=== PATIENT | female | born 1980 | race Caucasian/White ===

== ENCOUNTER 2017-03-13 17:07 | Emergency (ER) | payer MEDICAID ==
[~2017-03-13] VITALS: Ht 157.5 cm; Wt 67.1 kg
[2017-03-13] MEDS ORDERED: CLONIDINE HCL0.1 M1 PO (17:16)
--- NOTE | 2017-03-13 17:32 | Emergency Room Report ---
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 N Clinical Suspician of Infection? N Mental Status: 1 - Regular (Normal Baseline) Sepsis Risk:Low Sepsis Risk Have you (or family members/close friends) recently traveled outside the [place]? N If Yes, where/when: Have you had exposure to infectious disease within the past month? TB? Other? Specify: Comment The patient has a 5 day history of an infected area on her RIGHT medial thigh. No prior history of abscesses, skin infections, or MRSA. She squeezed it last night and got a small amount of purulent drainage with blood. ALLERGIES Uncoded Allergies: PCN (03/13/17) Home Medications Reported Medications CLONIDINE HCL (Clonidine 0.1MG) 0.1 MG PO ONCE #90 History Medical History General Angina: No [place]: No Hypertension? No Hyperlipidemia? No CHF? No COPD? No Asthma? No CVA? No Seizures? No Diabetes? No GB Disease: No MRSA? No TB? No Anxiety? Yes Depression? Yes Cancer? No More? 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 Cardiovascular regular rate/rhythm, normal peripheral pulses Neurologic alert, no motor/sensory deficits Skin cutaneous abscess RIGHT medial proximal thigh. Small pinhole sized draining sinus present, tiny amount of periodic drainage. Approximately 5 cm diameter area of induration palpable. No fluctuance. Surrounding erythema consistent with cellulitis, 10 cm diameter. Medical Decision Making LABS/Meds/Orders Pt receiving controlled substance in ED? No Results/Orders Current Medication Orders Sig/Michelle Start time Last Medication Dose Route Stop Time Status Admin Trimethoprim/ 0 .STK-MED ONE 03/13 1818 DC Sulfamethoxazole PO Trimethoprim/ 0 .STK-MED ONE 03/13 1817 DC Sulfamethoxazole PO Trimethoprim/ 1 TABLET ONCE ONE 03/13 1800 DCr 03/13 Sulfamethoxazole PO 03/13 1801 1819 Lidocaine/Epinephrine 0 .STK-MED ONE 03/13 1726 DC .ROUTE Orders Procedure Date/time Status GEN NSG/PT REQ (NOT FOR MEDS!) 03/13 175 Active CULTURE, WOUND 03/13 1753 Active Procedures Incision and Drainage Progress Incision/Drainage Performed by: JACE BRAGG Consent: Verbal consent obtained. Risks and benefits: risks, benefits and alternatives were discussed Consent given by: patient Patient identity confirmed: verbally with patient Type: abscess Location: RIGHT thigh Anesthesia: local infiltration Local anesthetic: lidocaine 1% with epinephrine Patient sedated: no Scalpel size: 11 Incision type: single straight Complexity: simple Drainage: purulent, bloody Drainage amount: Scant Wound treatment: probed for loculationsl. wound left open Packin/4 inch Culture: Yes Patient tolerance: Patient tolerated the procedure well with no immediate complications Departure Departure Disposition DC Home or Self Care(routine) Clinical Impression Primary Impression: Cutaneous abscess Qualifiers: Site of cutaneous abscess: extremity Site of cutaneous abscess of extremity: lower extremity Laterality: right Qualified Code: L02.415 - Cutaneous abscess of right lower limb Condition STABLE Patient Instructions DI for Incision and Drainage of a Skin Abscess Additional Instructions Additional instructions for ABSCESS: Day one and two: Remove the bandage and shower the area, leaving the packing in place. Gently blot dry. Apply a bandage. Day three: Follow-up with primary care physician, clinic, or Urgent Treatment Center for packing removal and culture results. Return to the emergency department if increasing pain, swelling, redness, redstreaks or fever greater than 101 degrees. Prescriptions Current Visit Scripts SULFAMETHOXAZOLE W/TRIMETHOPRI (Bactrim Ds Tab) 1 TAB PO BID #20 TAB ED Critical Care Critical Care No at 1915
--- NOTE | 2017-03-13 17:32 | Emergency Room Report ---
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 N Clinical Suspician of Infection? N Mental Status: 1 - Regular (Normal Baseline) Sepsis Risk:Low Sepsis Risk Have you (or family members/close friends) recently traveled outside the [place]? N If Yes, where/when: Have you had exposure to infectious disease within the past month? TB? Other? Specify: Comment The patient has a 5 day history of an infected area on her RIGHT medial thigh. No prior history of abscesses, skin infections, or MRSA. She squeezed it last night and got a small amount of purulent drainage with blood. ALLERGIES Uncoded Allergies: PCN (03/13/17) Home Medications Reported Medications CLONIDINE HCL (Clonidine 0.1MG) 0.1 MG PO ONCE #90 History Medical History General Angina: No [place]: No Hypertension? No Hyperlipidemia? No CHF? No COPD? No Asthma? No CVA? No Seizures? No Diabetes? No GB Disease: No MRSA? No TB? No Anxiety? Yes Depression? Yes Cancer? No More? 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 Cardiovascular regular rate/rhythm, normal peripheral pulses Neurologic alert, no motor/sensory deficits Skin cutaneous abscess RIGHT medial proximal thigh. Small pinhole sized draining sinus present, tiny amount of periodic drainage. Approximately 5 cm diameter area of induration palpable. No fluctuance. Surrounding erythema consistent with cellulitis, 10 cm diameter. Medical Decision Making LABS/Meds/Orders Pt receiving controlled substance in ED? No Results/Orders Current Medication Orders Sig/Michelle Start time Last Medication Dose Route Stop Time Status Admin Trimethoprim/ 0 .STK-MED ONE 03/13 1818 DC Sulfamethoxazole PO Trimethoprim/ 0 .STK-MED ONE 03/13 1817 DC Sulfamethoxazole PO Trimethoprim/ 1 TABLET ONCE ONE 03/13 1800 DCr 03/13 Sulfamethoxazole PO 03/13 1801 1819 Lidocaine/Epinephrine 0 .STK-MED ONE 03/13 1726 DC .ROUTE Orders Procedure Date/time Status GEN NSG/PT REQ (NOT FOR MEDS!) 03/13 175 Active CULTURE, WOUND 03/13 1753 Active Procedures Incision and Drainage Progress Incision/Drainage Performed by: JACE BRAGG Consent: Verbal consent obtained. Risks and benefits: risks, benefits and alternatives were discussed Consent given by: patient Patient identity confirmed: verbally with patient Type: abscess Location: RIGHT thigh Anesthesia: local infiltration Local anesthetic: lidocaine 1% with epinephrine Patient sedated: no Scalpel size: 11 Incision type: single straight Complexity: simple Drainage: purulent, bloody Drainage amount: Scant Wound treatment: probed for loculationsl. wound left open Packin/4 inch Culture: Yes Patient tolerance: Patient tolerated the procedure well with no immediate complications Departure Departure Disposition DC Home or Self Care(routine) Clinical Impression Primary Impression: Cutaneous abscess Qualifiers: Site of cutaneous abscess: extremity Site of cutaneous abscess of extremity: lower extremity Laterality: right Qualified Code: L02.415 - Cutaneous abscess of right lower limb Condition STABLE Patient Instructions DI for Incision and Drainage of a Skin Abscess Additional Instructions Additional instructions for ABSCESS: Day one and two: Remove the bandage and shower the area, leaving the packing in place. Gently blot dry. Apply a bandage. Day three: Follow-up with primary care physician, clinic, or Urgent Treatment Center for packing removal and culture results. Return to the emergency department if increasing pain, swelling, redness, redstreaks or fever greater than 101 degrees. Prescriptions Current Visit Scripts SULFAMETHOXAZOLE W/TRIMETHOPRI (Bactrim Ds Tab) 1 TAB PO BID #20 TAB ED Critical Care Critical Care No at 1915
[2017-03-13] MEDS ORDERED: BACTRIM DS 8001 TA1 PO (17:55)
[2017-03-13 18:26] VITALS: BP 131/91
== END 2017-03-13 18:27 | disposition home or self-care (01) ==
LOC: ER 17:07
PROC: 0H9HXZZ Drainage of Right Upper Leg Skin, External Approach (ICD-10-PCS; principal; 2017-03-13)
DX: L02.415 Cutaneous abscess of right lower limb (principal)

== ENCOUNTER 2017-04-12 19:27 | Emergency (ER) | payer MEDICAID ==
[~2017-04-12] VITALS: Ht 157.5 cm; Wt 67.1 kg
[~2017-04-12 19:27] MED LIST: BACTRIM DS 8001 TA1 PO; CLONIDINE HCL0.1 M1 PO
[2017-04-12 19:58] LABS: HEMOGLOBIN 13.3 g/dL (12.2-16.2)
[2017-04-12 19:59] LABS: LYMPH % 30.1 % (10-50.0)
[2017-04-12 20:03] LABS: URINE BILIRUBIN - DIPSTICK NEGATIVE (NEG); URINE BLOOD TRACE-INTACT (NEG)
--- NOTE | 2017-04-12 20:09 | Emergency Room Report ---
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 N Clinical Suspician of Infection? N Mental Status: 1 - Regular (Normal Baseline) Sepsis Risk:Low Sepsis Risk Have you (or family members/close friends) recently traveled outside the [place]? N If Yes, where/when: Have you had exposure to infectious disease within the past month? N TB? Other? Specify: Source patient, RN notes reviewed, family, old records Exam Limitations no limitations Comment 2 day hx of lt abd pain /flank with nausea but no fever or rash and no diarrhea Cardiac Chest Pain Chest pain indicative of cardiac No Timing/Duration this evening Severity moderate ALLERGIES Coded Allergies: Penicillins (03/15/17) latex (04/12/17) Home Medications Active Scripts SULFAMETHOXAZOLE W/TRIMETHOPRI (Bactrim Ds Tab) 1 TAB PO BID #20 TAB Prov: 03/13/17 Reported Medications CLONIDINE HCL (Clonidine 0.1MG) 0.1 MG PO ONCE #90 History Medical History General CAD? No Angina: No [place]: No Hypertension? No Hyperlipidemia? No CHF? No DVT? No PE? No COPD? No Asthma? No Anemia? No GERD? No Gastric ulcers? No GI Bleed? No Hernia? No Thyroid Problems? No Hypothyroidism? No CVA? No Seizures? No Diabetes? No Renal Insuffiency? No End Stage Renal Disease? No UTI? No Stones? No BPH? No GB Disease: No Nephritic Syndrome? No Asplenia? No Hepatitis? No Sickle Cell Disease? No Arthritis? No Migraines? No Cataracts? No Glaucoma? No MRSA? No HIV? No TB? No Anxiety? Yes Depression? Yes Cancer? No More? 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 Respiratory denies cough, denies shortness of breath, denies wheezing Cardiovascular denies chest pain, denies palpitations, denies syncope Gastrointestinal see HPI, abdominal pain, denies diarrhea, nausea, denies vomiting Genitourinary denies: abnormal vaginal bleeding, dysuria, frequency, hesitancy, hematuria. Musculoskeletal denies joint pain Skin denies rash Psychiatric/Neurological denies headache, denies seizure Physical Exam Vital Signs Vital Signs Date Time Temp Pulse Resp B/P Pulse O2 O2 Flow FiO2 Ox Delivery Rate 04/12 2007 98.8 108 16 133/90 99 04/12 1931 98.7 108 20 138/92 100 - WBC >12,000 or <4,000 or 10% bands? 2 or more SIRS Criteria Met? B/P:133/90 MAP:107 Creatinine >2.0? UA output<0.5ml/kg/hr for 2 hrs? Platelet count >100,000? Lactate >2.0mmol/1? INR >1.2 or PTT > than 60 sec? Evidence of Organ Dysfunction? Provider documented clinical suspician of infection? N Sepsis Criteria Count: 2 Sepsis Risk: Possible Sepsis Risk General Appearance no apparent distress Eye Exam - bilateral eye PERRL, bilateral eye EOMI Ear, Nose, Throat normal ENT inspection Neck supple Respiratory Status No: respiratory distress. Lung Sounds bilateral: lungs clear. 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 No Results/Orders Laboratory Tests 04/12/171950: Urine Color YELLOW, Urine Appearance SL CLOUDY, Urine pH 7.0, Ur Specific [place] 1.015, Urine Protein NEGATIVE, Urine Ketones NEGATIVE, Urine Blood TRACE -INTACT, Urine Nitrate NEGATIVE, Urine Bilirubin NEGATIVE, Urine Urobilinogen 0.2, Ur Leukocyte Esterase NEGATIVE, Urine RBC 3-5, Urine WBC OCC, Ur Squamous Epith Cells 10-20, Urine Bacteria 2+, Urine Glucose NEGATIVE 04/12/171944: Amylase 66, Lipase 188 04/12/171944: Sodium 138, Potassium 4.4, Chloride 101, Carbon Dioxide 28, BUN 9, Creatinine 1.0, Estimated Creat Clear 120, Estimated GFR (MDRD) 63, Glucose 73 L, Calcium 9.2, Total Bilirubin 0.2, AST 117 H, ALT 288 H, Alkaline Phosphatase 122 H, Total Protein 8.9 H, Albumin 4.2, Globulin 4.7 H, Albumin/Globulin Ratio 0.9 L, WBC 9.9, RBC 4.17 L, Hgb 13.3, Hct 39.8, MCV 95.4, RDW 13.8, Plt Count 353, Gran % 65.5, Gran # 6.5, Lymphocytes % 30.1, Monocytes % 4.4, Lymphocytes # 3.0, Monocytes # 0.4, PUBS MCHC 33.4, MCH 31.9 H Current Medication Orders Sig/Michelle Start time Last Medication Dose Route Stop Time Status Admin Sodium Chloride 10 ML PRN PRN 04/12 1945 AC IV 04/13 1935 Orders Procedure Date/time Status DIET-NOTHING BY MOUTH 04/13 B Active LIPASE 04/12 2009 Complete AMYLASE 04/[address] ABD & PELVIS W/O CONTRAST 04/12 2007 Active CULTURE, URINE 04/[address] ABD/PELVIS REQ 04/12 1935 Complete IV SALINE LOCK 04/12 1935 Active URINALYSIS/COMPLETE 04/12 1935 Complete URINE 04/12 1935 Complete CBC WITH AUTO DIFF 04/12 1935 Complete CHEM 12 PROFILE 04/12 1935 Complete XRAY/CT/US XRAY/CT/US CT abdomen, pelvis CT interpretation by discussed w/radiologist Time results known: 2043 CT Results normal/NAD Departure Departure Time of Disposition 2039 Disposition DC Home or Self Care(routine) Clinical Impression Primary Impression: Abdominal pain Qualifiers: Abdominal location: left upper quadrant Qualified Code: R10.12 - Left upper quadrant pain Secondary Impressions: Elevated LFTs Condition STABLE Referrals Jairo ADAMS,[place] Best (Family) Patient Instructions DI for Abdominal Pain-Adult Additional Instructions will follow as op and have pt call office for results Discharge Counseling Counseled pt/family regarding diagnosis, test results, follow up needs ED Critical Care Critical Care No at [id number]
[2017-04-12 21:02] VITALS: BP 138/99
--- NOTE | 2017-04-13 06:10 | RADIOLOGY REPORT PS360 ---
CT ABD PELVIS W/O CONTRAST CLINICAL INDICATION: Left-sided abdominal pain, left flank pain LEFT ABD PAIN ORDERING PHYSICIAN: Josh Gill MD PATIENT AGE: 36 years COMPARISON: None TECHNIQUE: Axial images obtained with sagittal and coronal reformats. PROCEDURE: Oral Contrast: None IV Contrast: None . FINDINGS: Lower thorax: No acute finding ABDOMEN: Liver: No masses or biliary dilatation. Gallbladder: Nondistended. No radio opaque stones. Pancreas: No masses or peripancreatic fluid collections. Spleen: Unremarkable. Adrenals: Unremarkable Kidneys/ureters: No masses. No renal calculi. No hydronephrosis. No perinephric fluid collections. No ureteral dilatation or obvious ureteral calculi. Stomach bowel: Constipation. Nonspecific nonobstructive bowel gas pattern Appendix: No evidence of appendicitis. PELVIS: Reproductive: Unremarkable Bladder: Nondistended. No obvious stones or masses. ABDOMEN & PELVIS: Peritoneum: No abnormal fluid collections. No obvious inflammatory changes. No free air. Lymph nodes: No enlarged lymph nodes apparent. Vasculature: No evidence of abdominal aortic aneurysm. No retroperitoneal hemorrhage evident. Bones: No acute fracture IMPRESSION: No acute intra-abdominal or pelvic findings Constipation.
== END 2017-04-12 21:03 | disposition home or self-care (01) ==
LOC: ER 19:27
PROVIDERS: Emergency Medicine
DX: R10.12 Left upper quadrant pain (principal); R94.5 Abnormal results of liver function studies; F17.210 Nicotine dependence, cigarettes, uncomplicated; Z88.0 Allergy status to penicillin; Z91.040 Latex allergy status

== ENCOUNTER → 2017-06-03 | Outpatient (CLI) | payer OTHER ==
[~2017-06-03] MED LIST changes: +PHENTERMINE H37.5 M1 PO
--- NOTE | 2017-06-07 11:02 | RADIOLOGY REPORT PS360 ---
MRI-L-SPINE W/O, MRI-3D RENDERING/MYELOGRAM HISTORY: BACK PAIN low back pain 6 months. Patient Age: 36 years: Female Ordering Physician: London Gill MD TECHNIQUE: Sagittal STIR, T1, T2, axial T1 and T2. On 1.5T Siemens wide bore MRI. 3-D MR myelogram image set obtained & performed on MRI workstation. Additional sagittal thin section T2 weighted dataset obtained from this latter acquisition as well (---76 CPT) COMPARISON :Previous CT abdomen and pelvis reconstructions of spine March 2017 FINDINGS Vertebral bodies appear intact and disc spaces remain well hydrated well-maintained. No disc herniation. L5/S1.. Disc intact with only slight Generous posterior disc contour... Question perhaps minor facet prominent/hypertrophy. These features yield only minor narrowing entry of left foramen more than right. L4/5. Disc intact. Unremarkable. Minor facet prominence. Neural foramen widely patent. L3/4 disc intact. Unremarkable. More generous spinal canal at this level. L2/3, L1/2, T12/L1, T11/12 disc intact. The paraspinal muscles appear satisfactory well-maintained and developed. Uppermost sacrum S1-S2 unremarkable 3-D MR myelogram image set appears normal. No remarkable epidural indentation. Normal gradual tapering of thecal sac inferiorly towards S1 level. IMPRESSION: No significant findings. No disc herniation. No spinal stenosis. No significant foraminal encroachment. . There may be some minor facet prominence and very early facet hypertrophy at L5/S1 L4/5 but unimpressive. Only question some minor narrowing at the entry left L5/S1 foramen.
== END ==
LOC: RAD 12:49
DX: M54.5 Low back pain (principal)

== ENCOUNTER 2017-06-16 23:10 | Emergency (ER) | payer MEDICAID ==
[~2017-06-16] VITALS: Ht 157.5 cm; Wt 68.0 kg
[~2017-06-16 23:10] MED LIST changes: -PHENTERMINE H37.5 M1 PO
[2017-06-16] MEDS ORDERED: PHENTERMINE H37.5 M1 PO (23:21)
--- OUTSIDE RECORDS SUMMARY | 2017-06-16 23:27 | External Medical Summary Rpt | CCD ---
Author Author , NIXON ALICEA Address Unknown Phone [email or web address] Care Team Providers Care Sap Bw Architect Name Role Phone [facility] Unavailable Unavailable MEDICAL GROUP, [facility] Unavailable Unavailable CENTER, [facility] Unavailable Unavailable [facility], Unavailable Unavailable [facility] Un[facility] Un[facility], [facility] Unavailable Unavailable INC, [facility] Unavailable Unavailable HOSPITAL, [facility], Unavailable Unavailable [facility] Unavailable Unavailable [facility], [facility] Unavailable Unavailable HOLDINGS, [facility] Unavailable Unavailable HUNG JEFF MD Unavailable Unavailable CONSULTING SRV, HUNG JEFF MD CONSULTING SRV [facility], Unavailable Unavailable PLLC, [facility], [facility] Unavailable Unavailable [place], [facility] Unavailable Unavailable PHYSICIAN SERVI, [facility] Purpose Continuity of Care Document - 05-14-2014 through 2016 Problems Code Diagnosis DOS Provider Status B19.10 UNSPECIFIED 05-03-2017 VIRAL HEPATITIS B WITHOUT HEPATIC COMA B1910 UNS VIRAL 05-02-2017 [facility] HEPATITIS B COMMUNTIY WITHOUT HOSPITA HEPATIC COMA Z11.4 ENCOUNTER 04-21-2017 FOR SCREENING FOR HUMAN IMMUNODEFIC IENCY VIRUS [HIV] K5900 CONSTIPATIO 04-12-2017 [facility] R1012 LEFT UPPER 04-12-2017 [facility] R1032 LEFT LOWER 04-12-2017 [facility] E663 OVERWEIGHT 03-28-2017 [facility] M549 DORSALGIA 03-28-2017 [facility] UNSPECIFIED PHYSICIANS GROUP R531 WEAKNESS 03-28-2017 [facility] GROUP R768 OTH SPEC 03-28-2017 [facility] IMMUNOLOGIC INC AL FIND IN SERUM X49574 OTHER LONG 03-14-[address] [facility] [address] CURRENT C[facility] DRUG THERAPY R05056 CUTANEOUS 03-13-2017 [facility] ABSCESS OF PHYSICIANS, RIGHT LOWER PLLC LIMB K57253 CUSTODIAL 02-15-2017 [facility]ICIANS CURRENT USE MEDICAL OF OPIATE CENTER ANALGESIC H5201 HYPERMETROP 12-02-2016 [facility] IA RIGHT EYE 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 R51433 UNSPECIFIED 12-02-2016 [facility] ASTIGMATISM BILATERAL J029 ACUTE 11-05-2016 [facility] PHARYNGITIS [facility] UNSPECIFIED R05 COUGH 07-12-2016 [facility] R6889 OTHER 07-12-2016 [facility] SYMPTOMS MEDICAL AND SIGNS GROUP J020 STREPTOCOCC 04-28-2016 [facility] PHARYNGITIS MEDICAL GROUP J0141 ACUTE 03-19-2016 [facility] HEALTH PANSINUSITI MEDICAL S GROUP J0190 ACUTE 12-20-2015 [facility] SINUSITIS [facility] UNSPECIFIED CENTER J069 ACUTE UPPER 12-20-2015 [facility] RESPIRATORY CENTER INFECTION UNSPECIFIED E876 HYPOKALEMIA 08-10-2015 [facility] R000 TACHYCARDIA 08-10-2015 [facility] J00 ACUTE 08-02-2015 [facility] NASOPHARYNG HEALTH ITIS COMMON MEDICAL COLD GROUP J0140 ACUTE 08-02-2015 [facility] PANSINUSITI HEALTH S MEDICAL UNSPECIFIED GROUP 5990 URINARY 04-14-2015 [facility] HOSPITAL SITE NOT SPECIFIED 51405 UNS ADVRS 12-13-2014 [facility]UN[facility] JEFF EFF UNS RX MD MEDICINAL&B CONSULTING [facility]OLOGICAL [facility] 4871 INFLUENZA 08-02-2014 [facility] WITH OTHER HEALTH RESPIRATORY MEDICAL GROUP MANIFESTATI ONS 2724 OTHER AND 07-13-2014 [facility] UNSPECIFIED HYPERLIPIDE NATHAN V700 ROUTINE 05-14-2014 [facility] [email or web address] FACL L02.91 CUTANEOUS ABSCESS, UNSPECIFIED R10.9 UNSPECIFIED ABDOMINAL PAIN R79.89 OTHER SPECIFIED ABNORMAL FINDINGS OF BLOOD CHEMISTRY Medications Na ND Rx Da Fi Fi Am Da Di Ph RX Ph St me C No te ll ll ou ys ag ar # ys at rm s nt no ma ic us Or Da si cy ia de te s n re d PO 62 10 11 10 30 00 ME Ac LY 17 -1 -1 20 00 DI ti ET 50 9- 7- .0 06 CI ve HY 44 20 20 00 74 NE LE 21 17 [address] OP GL YC PH OL AR MA 33 CY 50 PO WD CL 00 09 10 21 7 00 ME Ac IN 59 -0 -0 .0 00 DI ti DA 12 5- 6- 00 06 CI ve MY 93 20 20 74 NE CI 20 17 [address] HC OP L 30 PH 0 AR MG MA CY CA PS UL E IB 55 09 10 12 3 00 ME Ac UP 11 -0 -0 .0 00 DI ti RO 10 5- 6- 00 06 CI ve FE 68 20 20 74 NE N 30 17 17 [address] 0 OP MG PH TA AR BL MA ET CY WALDRON 53 08 09 20 10 00 ME Ac LF 74 -2 -2 .0 00 DI ti AM 60 8- 9- 00 06 CI ve ET 27 20 20 74 NE HO 20 17 17 [address] ZO OP LE -T PH MP AR MA DS CY TA BL ET HY 00 08 09 [address] 18 -2 -2 .0 00 DI ti OX 50 9- 9- 00 06 CI ve YZ 61 20 20 74 NE IN 50 17 [address] PA OP M 50 PH AR MG MA CY CA P [place] 60 08 09 30 30 00 ME Ac RT 50 -2 -2 .0 00 DI ti AZ 50 5- 2- 00 06 CI ve AP 24 20 20 74 NE IN 70 17 [address] 15 OP MG PH AR TA MA BL CY ET MO 33 08 09 30 30 00 ME Ac NT 34 -2 -2 .0 00 DI ti EL 20 5- 2- 00 06 CI ve UK 10 20 20 74 NE 21 17 [address] SO OP D 10 PH AR MG MA CY TA BL ET ME 31 08 09 90 30 00 ME Ac TH 72 -2 -2 .0 00 DI ti OC 20 5- 2- 00 06 CI ve AR 53 20 20 74 NE BA 40 17 [address] L OP 75 0 PH MG AR MA TA CY BL ET QU 16 08 09 30 30 00 ME Ac ET 72 -2 -2 .0 00 DI ti IA 90 5- 2- 00 06 CI ve PI 14 20 20 74 NE NE 70 17 [address] FU OP MA RA PH TE AR MA 10 CY 0 MG TA B LO 00 08 09 30 30 00 ME Ac RA 78 -2 -2 .0 00 DI ti TA 15 5- 2- 00 06 CI ve DI 07 20 20 74 NE NE 70 17 [address] 10 OP MG PH AR TA MA BL CY ET CL 00 08 09 90 30 00 ME Ac ON 22 -2 -2 .0 00 DI ti ID 82 5- 2- 00 06 CI ve IN 12 20 20 74 NE E 75 17 [address] L OP 0. 1 PH MG AR MA TA CY BL ET BU 69 08 09 60 [address] 09 -2 -2 .0 00 DI ti OP 70 5- 2- 00 06 CI ve IO 87 20 20 74 NE N 70 17 [address] L OP SR PH 10 AR 0 MA MG CY TA BL ET HY 00 08 [address] 18 -0 -0 .0 00 AZ ti OX 50 3- 1- 00 00 A ve YZ [address] IN 50 17 17 04 UG E 5 36 PA SP M EC 50 IA LT MG Y CA CA RE P IB 67 07 [address] Ac UP 87 -2 -2 .0 00 AZ ti RO 70 5- 5- 00 00 A ve FE [address] N 10 17 17 98 UG 80 5 63 0 SP MG EC IA TA LT BL Y ET CA RE HY 00 07 [address] 18 -2 -2 .0 00 AZ ti OX 50 5- 5- 00 00 A ve YZ [address] IN 50 17 17 98 UG E 5 69 PA SP M EC 50 IA LT MG Y CA CA RE P MO 00 07 [address] Ac NT 60 -2 -2 .0 00 AZ ti EL 34 7- 5- 00 00 A ve UK [address] 53 17 17 00 UG T 2 53 SO SP D EC 10 IA LT MG Y CA TA RE BL ET ME 00 07 [address] Ac TH 60 -2 -2 .0 00 AZ ti OC 34 7- 5- 00 00 A ve AR [address] BA 62 17 17 00 UG MO 8 50 L SP 75 EC 0 IA MG LT Y TA CA BL RE ET NI 43 07 [address] Ac CO 59 -2 -2 .0 00 AZ ti TI 80 5- 5- 00 00 A ve NE [address] 82 17 17 98 UG 21 8 68 SP MG EC /2 IA 4H LT R Y PA CA TC RE H QU 67 07 [address] Ac ET 87 -2 -2 .0 00 AZ ti IA 70 5- 5- 00 00 A ve PI [address] NE 90 17 17 98 UG 1 78 FU SP MA EC RA IA TE LT Y 50 CA RE MG TA B BU 00 07 [address] 18 -2 -2 .0 00 AZ ti OP 50 5- 5- 00 00 A ve IO [address] N 06 17 17 98 UG HC 0 76 L SP SR EC IA 10 LT 0 Y MG CA RE TA BL ET CL 29 07 [address] Ac ON 30 -2 -2 .0 00 AZ ti ID 00 7- 5- 00 00 A ve IN [address] E 50 17 17 00 UG HC 5 44 L SP 0. EC 1 IA MG LT Y TA CA BL RE ET [place] 00 07 [address] Ac RT 09 -2 -2 .0 00 AZ ti AZ 37 7- 5- 00 00 A ve AP [address] IN 65 17 17 00 UG E 6 49 15 SP EC MG IA LT TA Y BL CA ET RE CT 00 07 [address] Ac OP 60 -2 -2 .0 00 AZ ti RA 35 5- 5- 00 00 A ve NO [address] LO 32 17 17 98 UG L 1 70 20 SP EC MG IA LT TA Y BL CA ET RE LO 45 07 [address] Ac RA 80 -2 -2 .0 00 AZ ti TA 20 5- 5- 00 00 A ve DI [address] SUMI 08 17 17 98 UG 7 64 10 SP EC MG IA LT TA Y BL CA ET RE BU 69 05 06 60 [address] 09 -2 -2 .0 00 DI ti OP 70 3- 3- 00 06 CI ve IO 87 20 20 73 NE N 80 17 [address] L OP SR PH 15 AR 0 MA MG CY TA BL ET BU 60 05 06 60 [address] 50 -0 -0 .0 00 DI ti OP 50 1- 2- 00 06 CI ve IO 15 20 20 73 NE N 80 17 [address] L OP 75 PH MG AR MA TA CY BL ET BU 60 03 03 60 [address] 50 -0 -3 .0 00 TE ti OP 50 7- 1- 00 00 ve IO 15 20 20 76 AI N 80 17 17 21 D HC 1 05 PH L AR 75 M #3 MG 91 4 TA BL ET QU 16 02 03 30 30 00 RI Ac ET 72 -2 -1 .0 00 TE ti IA 90 5- 7- 00 00 ve PI 14 20 20 74 AI NE 60 17 17 59 D 1 82 PH FU AR MA M RA #3 TE 91 4 50 MG TA B CL 16 12 01 60 30 00 RI Ac ON 72 -2 -2 .0 00 TE ti AZ 90 7- 0- 00 00 ve EP 13 20 20 74 AI AM 60 16 17 37 D 0 11 PH 0. AR 5 M MG #3 91 TA [address] 00 12 01 12 6 00 RI Ac OM 60 -2 -2 0. 00 TE ti ET 31 6- 0- 00 00 ve CHICAS 58 20 20 0 74 AI ZI 65 16 17 88 D NE 4 46 PH -D AR M M SY #3 RU 91 P 4 ME 62 12 01 30 30 00 RI Ac TO 03 -2 -1 [address] 70 3- 3- 00 00 ve OL 83 20 20 73 AI OL 10 16 17 95 D 1 12 PH WALDRON AR CC M #3 ER 91 4 50 MG TA B QU 16 12 01 30 30 00 RI Ac ET 72 -2 -1 .0 00 TE ti IA 90 3- 3- 00 00 ve PI 14 20 20 74 AI NE 60 16 17 59 D 1 82 PH FU AR MA M RA #3 TE 91 4 50 MG TA B Results Labs Lab Lab Date Result Refere Interp Status Commen Order Detail nces retati t Range on Urinalysis dipstick W Reflex Microscopic panel in Urine (04-12-2017 19:51) Bacteri 2+ O complet a 017 ed [Presen 19:51 ce] in Urine sedimen t by Light microsc opy Erythro 3-5 0 complet cytes 017 ed [Presen 19:51 ce] in Urine sedimen t by Light microsc opy Epithel 10-20 0#/hp complet ial 017 f - ed cells.s 19:51 5#/hp quamous f [Presen ce] in Urine sedimen t by Microsc opy high power field Urinalysis dipstick W Reflex Microscopic panel in Urine (04-12-2017 19:51) Appeara SL CLEAR complet nce of 017 CLOUDY ed Urine 19:51 Bilirub NEGATIV NEG complet in 017 E ed [Presen 19:51 ce] in Urine by Test strip Erythro TRACE-I NEG complet cytes 017 NTACT ed [Presen 19:51 ce] in Urine Color YELLOW YELLOW complet of 017 ed Urine 19:51 Ketones NEGATIV NEG complet 017 E ed [Presen 19:51 ce] in Urine by Automat ed test strip Mucus NEGATIV NEG complet [Presen 017 E ed ce] in 19:51 Urine sedimen t by Light microsc opy Nitrite NEGATIV NEG complet 017 E ed [Presen 19:51 ce] in Urine by Test strip Urobili 0.2 NEG complet nogen 017 ed [Presen 19:51 ce] in Urine by Test strip Hemoglobin A1c in Blood (03-28-2017 16:26) Hemoglo 5.1 % 0.0% Normal complet bin A1c 017 - ed in 16:26 7.0% Blood Encounters Encounter Start End Date Code Location Performer Type [facility] 7 [facility] - 7 7 [facility] 7 [facility] - 5 5 [facility]
--- OUTSIDE RECORDS SUMMARY | 2017-06-16 23:27 | External Medical Summary Rpt | CCD ---
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 Name Role Phone [facility] Unavailable Unavailable MEDICAL GROUP, [facility]ICAL GROUP [facility] Unavailable Unavailable CENTER, [facility] Unavailable Unavailable [facility], Unavailable Unavailable [facility] Un[facility] Unavailable INC, [facility] Unavailable Unavailable H[facility]PITAL, [facility], Unavailable Unavailable [facility] Unavailable Unavailable [facility], [facility] Unavailable Unavailable HOLDINGS, [facility] Unavailable Unavailable HUNG JEFF MD Unavailable Unavailable CONSULTING SRV, HUNG JEFF MD CONSULTING SRV [facility], Unavailable Unavailable PLLC, [facility], [facility] Unavailable Unavailable [place], [facility] Unavailable Unavailable PHYSICIAN SERVI, [facility] Purpose Continuity of Care Document - 05-14-2014 through 2016 Problems Code Diagnosis DOS Provider Status B19.10 UNSPECIFIED 05-03-2017 VIRAL HEPATITIS B WITHOUT HEPATIC COMA B1910 UNS VIRAL 05-02-2017 MOBILE HEPATITIS B COMMUNTIY WITHOUT HOSPITA HEPATIC COMA Z11.4 ENCOUNTER 04-21-2017 FOR SCREENING FOR HUMAN IMMUNODEFIC IENCY VIRUS [HIV] K5900 CONSTIPATIO 04-12-2017 [place] [facility] R1012 LEFT UPPER 04-12-2017 [facility] R1032 LEFT LOWER 04-12-2017 [facility] [facility] E663 OVERWEIGHT 03-28-2017 [facility]ANS GROUP M549 DORSALGIA 03-28-2017 [facility] UNSPECIFIED PHYSICIANS GROUP R531 WEAKNESS 03-28-2017 [facility]ANS GROUP R768 OTH SPEC 03-28-2017 [facility] IMMUNOLOGIC INC AL FIND IN SERUM [id number] OTHER LONG 03-14-[address] [facility] [address]ICAL CURRENT CENTER DRUG THERAPY A79569 CUTANEOUS 03-13-2017 [facility] ABSCESS OF PHYSICIANS, RIGHT LOWER PLLC LIMB Q10619 MCFP 02-15-2017 PHYSICIANS CURRENT USE MEDICAL OF OPIATE CENTER ANALGESIC H5201 HYPERMETROP 12-02-2016 [facility] IA RIGHT EYE 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 Z87211 UNSPECIFIED 12-02-2016 [facility] ASTIGMATISM BILATERAL J029 ACUTE 11-05-2016 [facility] PHARYNGIT[facility] UNSPECIFIED R05 COUGH 07-12-2016 [facility] R6889 OTHER 07-12-2016 [facility] SYMPTOMS MEDICAL AND SIGNS GROUP J020 STREPTOCOCC 04-28-2016 [facility] PHARYNGITIS MEDICAL GROUP J0141 ACUTE 03-19-2016 [facility] PANSINUSITI MEDICAL S GROUP J0190 ACUTE 12-20-2015 [facility] SINUSITIS [facility] UNSPECIFIED CENTER J069 ACUTE UPPER 12-20-2015 [facility] RESPIRATORY CENTER INFECTION UNSPECIFIED E876 HYPOKALEMIA 08-10-2015 [facility] R000 TACHYCARDIA 08-10-2015 [facility] UNSPECIFIED SERVI J00 ACUTE 08-02-2015 [facility] HE[facility] ITIS COMMON MEDICAL COLD GROUP J0140 ACUTE 08-02-2015 [facility] PANSINUS[facility]I HEALTH S MEDICAL UNSPECIFIED GROUP 5990 URINARY 04-14-2015 [facility] SITE NOT SPECIFIED 76259 UNS ADVRS 12-13-2014 HUNG JEFF EFF UNS RX MD MEDICINAL&B CONSULTING IOLOGICAL SRV [facility] 4871 INFLUENZA 08-02-2014 [facility] WITH OTHER HEALTH RESPIRATORY MEDICAL GROUP MANIFESTATI ONS 2724 OTHER AND 07-13-2014 [facility] UNSPECIFIED HYPERLIPIDE NATHAN V700 ROUTINE 05-14-2014 [facility] [email or web address] FACL L02.91 CUTANEOUS [...] PH AR MG MA CY CA P WI 60 08 09 30 30 00 ME [...] 08 09 60 30 00 ME Ac GA 09 -2 -2 .0 00 DI ti [...] 07 [address] Ac GA 18 -2 -2 .0 00 AZ ti [...] LT Y TA CA BL RE ET WI 00 07 [address] Ac RT 09 -2 -2 .0 00 AZ ti AZ 37 7- 5- 00 00 A ve AP [address] IN 65 17 17 00 UG E 6 49 15 SP EC MG IA LT TA Y BL CA ET RE GA 00 07 [address] [...] 05 06 60 30 00 ME Ac GA 09 -2 -2 .0 00 DI ti OP 70 3- 3- 00 06 CI ve IO 87 20 20 73 NE N 80 17 [address] L OP SR PH 15 AR 0 MA MG CY TA BL ET BU 60 05 06 60 30 00 ME Ac GA 50 -0 -0 .0 00 DI ti OP 50 1- 2- 00 06 CI ve IO 15 20 20 73 NE N 80 17 [address] L OP 75 PH MG AR MA TA CY BL ET BU 60 03 03 60 30 00 RI Ac GA 50 -0 -3 .0 00 TE ti [...] MG #3 91 TA 4 BL ET GA 00 12 01 12 6 00 RI [...] 03 -2 -1 .0 00 TE ti GA 70 3- 3- 00 00 ve OL [...] End Date Code Location Performer Type Date [facility] 7 7 [facility] - 7 7 [facility] OTHER 7 7 [facility] - 5 5 [facility]
--- OUTSIDE RECORDS SUMMARY | 2017-06-16 23:29 | External Medical Summary Rpt ---
Author Author [facility] Fregoso, [employer] Organization [employer] Address Unknown Phone Unavailable Results Urinalysis dipstick W Reflex Microscopic panel in Urine Observa Value Referen Units Interpr Notes Date tion ce etation Range Appeara SL CLEAR No No No Apr 12 nce of CLOUDY informa informa informa 2017 Urine tion in tion in tion in 7:51 PM source source source data data data Bacteri 2+ O No No No Apr 12 a informa informa informa 2016 [Presen tion in tion in tion in 7:51 PM ce] in source source source Urine data data data sedimen t by Light microsc opy Bilirub NEGATIV NEG No No No Apr 12 in E informa informa informa 2016 [Presen tion in tion in tion in 7:51 PM ce] in source source source Urine data data data by Test strip Erythro TRACE-I NEG No No No Apr 12 cytes NTACT informa informa informa 2016 [Presen tion in tion in tion in 7:51 PM ce] in source source source Urine data data data Color YELLOW YELLOW No No No Apr 12 of informa informa informa 2016 Urine tion in tion in tion in 7:51 PM source source source data data data Glucose NEG No No No Apr 12 [Mass/vol informati informati informati 2016 7:51 ume] in on in on in on in PM Urine by source source source Test data data data strip Ketones NEGATIV NEG mg/dL No No Apr 12 E informa informa 2016 [Presen tion in tion in 7:51 PM ce] in source source Urine data data by Automat ed test strip Mucus NEGATIV NEG No No No Apr 12 [Presen E informa informa informa 2017 ce] in tion in tion in tion in 7:51 PM Urine source source source sedimen data data data t by Light microsc opy Nitrite NEGATIV NEG No No No Apr 12 E informa informa informa 2017 [Presen tion in tion in tion in 7:51 PM ce] in source source source Urine data data data by Test strip pH of 5.0 - 8.5 No Normal No Apr 12 Urine informati informati 2017 7:51 on in on in PM source source data data Protein NEG mg/dL No No Apr 12 [Mass/vol informati informati 2017 7:51 ume] in on in on in PM Urine by source source Automated data data test strip Erythro 3-5 0 rbc/hpf No No Apr 12 cytes informa informa 2016 [Presen tion in tion in 7:51 PM ce] in source source Urine data data sedimen t by Light microsc opy Specific 1.005 - No Normal No Apr 12 gravity 1.030 informati informati 2017 7:51 of Urine on in on in PM source source data data Epithel 10-20 0 - 5 #/hpf No No Apr 12 ial informa informa 2017 cells.s tion in tion in 7:51 PM quamous source source data data [Presen ce] in Urine sedimen t by Microsc opy high power field Urobili 0.2 NEG E.U./dL No No Apr 12 nogen informa informa 2016 [Presen tion in tion in 7:51 PM ce] in source source Urine data data by Test strip Leukocyte O wbc/hpf No No Apr 12 s informati informati 2017 7:51 [#/volume on in on in PM ] in source source Urine data data Urinalysis dipstick W Reflex Microscopic panel in Urine Observa Value Referen Units Interpr Notes Date tion ce etation Range Appeara SL CLEAR No No No Apr 12 nce of CLOUDY informa informa informa 2017 Urine tion in tion in tion in 7:51 PM source source source data data data Bilirub NEGATIV NEG No No No Apr 12 in E informa informa informa 2016 [Presen tion in tion in tion in 7:51 PM ce] in source source source Urine data data data by Test strip Erythro TRACE-I NEG No No No Apr 12 cytes NTACT informa informa informa 2016 [Presen tion in tion in tion in 7:51 PM ce] in source source source Urine data data data Color YELLOW YELLOW No No No Apr 12 of informa informa informa 2016 Urine tion in tion in tion in 7:51 PM source source source data data data Glucose NEG No No No Sep [Mass/vol informati informati informati 2016 7:51 ume] in on in on in on in PM Urine by source source source Test data data data strip Ketones NEGATIV NEG mg/dL No No Sep E informa informa 2016 [Presen tion in tion in 7:51 PM ce] in source source Urine data data by Automat ed test strip Mucus NEGATIV NEG No No No Sep [Presen E informa informa informa 2016 ce] in tion in tion in tion in 7:51 PM Urine source source source sedimen data data data t by Light microsc opy Nitrite NEGATIV NEG No No No Sep E informa informa informa 2016 [Presen tion in tion in tion in 7:51 PM ce] in source source source Urine data data data by Test strip pH of 5.0 - 8.5 No Normal No Sep Urine informati informati 2017 7:51 on in on in PM source source data data Protein NEG mg/dL No No Sep 26 [Mass/vol informati informati 2017 7:51 ume] in on in on in PM Urine by source source Automated data data test strip Specific 1.005 - No Normal No Sep gravity 1.030 informati informati 2017 7:51 of Urine on in on in PM source source data data Urobili 0.2 NEG E.U./dL No No Sep nogen informa informa 2016 [Presen tion in tion in 7:51 PM ce] in source source Urine data data by Test strip Choriogonadotropin.beta subunit [Units] in 24 hour Urine Observa Value Referen Units Interpr Notes Date tion ce etation Range Choriogon NEG No No No Sep 26 adotropin informati informati informati 2017 7:51 .beta on in on in on in PM subunit source source source [Units] data data data in 24 hour Urine Amylase [Enzymatic activity/volume] in Serum or Plasma Observa Value Referen Units Interpr Notes Date tion ce etation Range Amylase 25 - 115 U/L Normal No Sep 26 [Enzymati informati 2017 7:45 c on in PM activity/ source volume] data in Serum or Plasma Lipase [Enzymatic activity/volume] in Serum or Plasma Observa Value Referen Units Interpr Notes Date tion ce etation Range Lipase 73 - 393 U/L Normal No Sep 26 [Enzymati informati 2017 7:45 c on in PM activity/ source volume] data in Serum or Plasma Comprehensive metabolic 2000 panel in Serum or Plasma Observa Value Referen Units Interpr Notes Date tion ce etation Range Albumin/G 1.1 - 1.8 No Low No Sep lobulin informati informati 2017 7:45 [Mass on in on in PM ratio] in source source Serum or data data Plasma Albumin 3.4 - 5.0 gm/dL Normal No Sep [Mass/vol informati 2016 7:45 ume] in on in PM Serum or source Plasma data Alkaline 46 - 116 U/L High No Sep phosphata informati 2016 7:45 se on in PM [Enzymati source c data activity/ volume] in Serum or Plasma Bilirubin 0.2 - 1.0 mg/dL Normal No Apr 12 .total informati 2016 7:45 [Mass/vol on in PM ume] in source Serum or data Plasma Urea 7 - 18 mg/dL Normal No Sep nitrogen informati 2016 7:45 [Mass/vol on in PM ume] in source Serum or data Plasma Calcium 8.5 - mg/dL Normal No Sep [Mass/vol 10.1 informati 2017 7:45 ume] in on in PM Serum or source Plasma data Chloride 98 - 107 mmoL/L Normal No Sep [Moles/vo informati 2017 7:45 lume] in on in PM Serum or source Plasma data Carbon 21.0 - mmoL/L Normal No Sep dioxide, 32.0 informati 2017 7:45 total on in PM [Moles/vo source lume] in data Serum or Plasma Creatinin 0.55 - mg/dL Normal No Sep e 1.02 informati 2017 7:45 [Mass/vol on in PM ume] in source Serum or data Plasma Creatinin 50 - 200 ML/MIN Normal No Sep 26 e renal informati 2016 7:45 clearance on in PM source predicted data by Cockcroft -Gault formula Estimated 59- ML/MIN No REFERENCE Sep 26 informati RANGE: 2017 7:45 glomerula on in >60 PM r source ML/MIN/1. filtratio data 73 SQUARE n rate METERSIf (GF this patient is -A merican, then multiply theresult by 1.210. Globulin 1.3 - 3.2 gm/dL High No Sep 26 [Mass/vol informati 2016 7:45 ume] in on in PM Serum source data Glucose 74 - 106 mg/dL Low No Sep [Mass/vol informati 2016 7:45 ume] in on in PM Serum or source Plasma data Potassium 3.5 - 5.1 mmoL/L Normal POTASSIUM Apr 12November 7:45 [Moles/vo FALSELY PM lume] in ELEVATED Serum or DUE TO Plasma SLIGHT HEMOLYSIS Sodium 136 - 145 mmoL/L Normal No Apr 12 [Moles/vo informati 2016 7:45 lume] in on in PM Serum or source Plasma data Aspartate 15 - 37 U/L High AST NovemberApr 122016 7:45 aminotran FALSELY PM sferase ELEVATED [Enzymati DUE TO c SLIGHT activity/ HEMOLYSIS volume] in Serum or Plasma Alanine 12 - 78 U/L High No Apr 12 aminotran informati 2016 7:45 sferase on in PM [Enzymati source c data activity/ volume] in Serum or Plasma Protein 6.4 - 8.2 gm/dL High No Sep [Mass/vol informati 2016 7:45 ume] in on in PM Serum or source Plasma data CBC W Auto Differential panel in Blood Observa Value Referen Units Interpr Notes Date tion ce etation Range Granulocy 1.8 - 7.8 K/mm3 Normal No Sep natalia informati 2016 7:45 [#/volume on in PM ] in source Blood by data Automated count Granulocy 37.0 - % Normal No Sep natalia/100 80.0 informati 2016 7:45 leukocyte on in PM s in source Blood by data Automated count Hematocri 37.0 - % Normal No Sep t [Volume 47.0 informati 2016 7:45 on in PM Fraction] source of Blood data Hemoglobi 12.2 - g/dL Normal No Sep n 16.2 informati 2016 7:45 [Mass/vol on in PM ume] in source Blood data Lymphocyt 0.7 - 4.5 K/mm3 Normal No Apr 12 es informati 2016 7:45 [#/volume on in PM ] in source Unspecifi data ed specimen by Automated count Lymphocyt 10 - 50.0 % Normal No Sep 26 es informati 2016 7:45 [#/volume on in PM ] in source Unspecifi data ed specimen by Automated count Erythrocy 27 - 31.2 pg High No Sep 26 te mean informati 2016 7:45 corpuscul on in PM ar source hemoglobi data n [Entitic mass] Erythrocy 31.8 - g/dl Normal No Sep 26 te mean 35.4 informati 2016 7:45 corpuscul on in PM ar source hemoglobi data n concentra tion [Mass/vol ume] by Automated count Erythrocy 82.2 - fL Normal No Sep 26 te mean 97.8 informati 2016 7:45 corpuscul on in PM ar volume source [Entitic data volume] by Automated count Monocytes 0.1 - 1.0 K/mm3 Normal No Sep 26 informati 2016 7:45 [#/volume on in PM ] in source Blood by data Automated count Monocytes 1.7 - 9.3 % Normal No Sep 26 /100 informati 2016 7:45 leukocyte on in PM s in source Blood by data Automated count Platelets 142 - 424 K/mm3 Normal No Sep 26 informati 2016 7:45 [#/volume on in PM ] in source Blood data Erythrocy 4.2 - 5.4 M/mm3 Low No Sep 26 natalia informati 2016 7:45 [#/volume on in PM ] in source Amniotic data fluid Erythrocy 11.5 - % Normal No Sep 26 te 17.5 informati 2016 7:45 distribut on in PM ion width source [Entitic data volume] by Automated count Leukocyte 4.8 - K/mm3 Normal No Sep 26 s 10.8 informati 2016 7:45 [#/volume on in PM ] in source Blood data HCV RNA by PCR, Qn Rfx Noris Observa Value Referen Units Interpr Notes Date tion ce etation Range Hepatitis . IU/mL No No Sep 11 C virus informati informati 2017 4:28 RNA on in on in PM [Units/vo source source lume] data data (viral load) in Serum or Plasma by Probe & target amplifica tion method Hepatitis . No No INFCE Sep 11 C virus informati informati Result 2017 4:28 RNA [log on in on in Units: PM units/vol source source log10 ume] data data IU/mL (viral load) in Serum or Plasma by Probe & target amplifica tion method Test Comment . No No The Mar 28 Informa informa informa quantit 2017 tion: tion in tion in ative 4:28 PM source source range data data of this assay is 15 IU/mL to 100mill ion IU/mL. HCV Comment . No No To be Mar 28 Genotyp informa informa perform 2017 e tion in tion in ed on 4:28 PM source source this data data specime n. Hepatit 1a . No No Perform Mar 28 is C informa informa ed at: 2017 virus tion in tion in BN - 4:28 PM genotyp source source [facility] e data data [Identi [facility]] [id number] in [place], [place] by Probe & [id number] target 61[facility] Directo amplifi r: cation Saúl Mcguire MD, Phone: [phone] Please Comment . No No This Mar 28 note: informa informa test 2017 tion in tion in was 4:28 PM source source develop data data ed and its perform ance charact eristic sdeterm ined by [facility] . It has not been cleared or approve dby the U.[place]. Food and Drug Adminis tration .The FDA has determi nikolai that such clearan ce or approva l isnot necessa ry. This test is used for clinica l purpose s. Itshoul d not be regarde d as investi gationa l or for researc h.Perfo rmed at: - [facility] [id number] [facility], [place], [place] [id number] Directo r: Saúl Mcguire MD, Phone: [phone] Comprehensive metabolic 2000 panel in Serum or Plasma Observa Value Referen Units Interpr Notes Date tion ce etation Range Albumin/G 1.1 - 1.8 No Low No Sep lobulin informati informati 2017 4:26 [Mass on in on in PM ratio] in source source Serum or data data Plasma Albumin 3.4 - 5.0 gm/dL Normal No Mar 28 [Mass/vol informati 2017 4:26 ume] in on in PM Serum or source Plasma data Alkaline 46 - 116 U/L Normal No Mar 28 phosphata informati 2017 4:26 se on in PM [Enzymati source c data activity/ volume] in Serum or Plasma Bilirubin 0.2 - 1.0 mg/dL Normal No Sep 11 .total informati 2017 4:26 [Mass/vol on in PM ume] in source Serum or data Plasma Urea 7 - 18 mg/dL Normal No Sep 11 nitrogen informati 2017 4:26 [Mass/vol on in PM ume] in source Serum or data Plasma Calcium 8.5 - mg/dL Normal No Sep 11 [Mass/vol 10.1 informati 2017 4:26 ume] in on in PM Serum or source Plasma data Chloride 98 - 107 mmoL/L Normal No Sep 11 [Moles/vo informati 2017 4:26 lume] in on in PM Serum or source Plasma data Carbon 21.0 - mmoL/L Normal No Sep 11 dioxide, 32.0 informati 2017 4:26 total on in PM [Moles/vo source lume] in data Serum or Plasma Creatinin 0.55 - mg/dL Normal No Sep 11 e 1.02 informati 2016 4:26 [Mass/vol on in PM ume] in source Serum or data Plasma Estimated 59- ML/MIN No REFERENCE Sep 11 informati RANGE: 2017 4:26 glomerula on in >60 PM r source ML/MIN/1. filtratio data 73 SQUARE n rate METERSIf (GF this patient is -A merican, then multiply theresult by 1.210. Globulin 1.3 - 3.2 gm/dL High No Sep 11 [Mass/vol informati 2017 4:26 ume] in on in PM Serum source data Glucose 74 - 106 mg/dL Normal No Sep 11 [Mass/vol informati 2017 4:26 ume] in on in PM Serum or source Plasma data Potassium 3.5 - 5.1 mmoL/L Normal No Sep 11 informati 2017 4:26 [Moles/vo on in PM lume] in source Serum or data Plasma Sodium 136 - 145 mmoL/L Normal No Sep 11 [Moles/vo informati 2017 4:26 lume] in on in PM Serum or source Plasma data Aspartate 15 - 37 U/L High No Sep 11 informati 2017 4:26 aminotran on in PM sferase source [Enzymati data c activity/ volume] in Serum or Plasma Alanine 12 - 78 U/L High No Sep 11 aminotran informati 2017 4:26 sferase on in PM [Enzymati source c data activity/ volume] in Serum or Plasma Protein 6.4 - 8.2 gm/dL High No Sep 11 [Mass/vol informati 2017 4:26 ume] in on in PM Serum or source Plasma data Lipid 1996 panel in Serum or Plasma Observa Value Referen Units Interpr Notes Date tion ce etation Range Cholester < 200 mg/dL High No Sep 11 ol informati 2017 4:26 [Moles/vo on in PM lume] in source Unspecifi data ed specimen Cholester 40 - 60 MG/DL Normal No Sep 11 ol in HDL informati 2017 4:26 on in PM [Mass/vol source ume] in data Serum or Plasma Cholester 0 - 130 mg/dL High No Sep 11 ol in LDL informati 2017 4:26 on in PM [Mass/vol source ume] in data Serum or Plasma by calculati on Triglycer 30 - 200 mg/dL High No Sep 11 aniceto informati 2017 4:26 [Moles/vo on in PM lume] in source Serum or data Plasma Cholester 0 - 40 No High No Sep 11 ol in informati informati 2017 4:26 VLDL on in on in PM [Mass/vol source source ume] in data data Serum or Plasma Thyroxine (T4) [Mass/volume] in Serum or Plasma Observa Value Referen Units Interpr Notes Date tion ce etation Range Thyroxine 4.7 - ug/dl Normal No Sep 11 (T4) 13.3 informati 2016 4:26 [Mass/vol on in PM ume] in source Serum or data Plasma Thyrotropin [Units/volume] in Serum or Plasma Observa Value Referen Units Interpr Notes Date tion ce etation Range Thyrotrop 0.358 - uIU/ml Normal No Sep 11 in 3.740 informati 2017 4:26 [Units/vo on in PM lume] in source Serum or data Plasma CBC W Auto Differential panel in Blood Observa Value Referen Units Interpr Notes Date tion ce etation Range Basophils 0 - 0.2 K/MM3 Normal No Sep 11 informati 2016 4:26 [#/volume on in PM ] in source Blood by data Automated count Basophils 0.1 - 2.0 % Normal No Sep 11 /100 informati 2016 4:26 leukocyte on in PM s in source Blood by data Automated count Eosinophi 0.0 - 0.4 K/mm3 Normal No Sep 11 ls informati 2016 4:26 [#/volume on in PM ] in source Blood by data Automated count Eosinophi 0.1 - % Normal No Sep 11 ls/100 12.0 informati 2016 4:26 leukocyte on in PM s in source Blood by data Automated count Granulocy 1.8 - 7.8 K/mm3 Normal No Sep 11 natalia informati 2016 4:26 [#/volume on in PM ] in source Blood by data Automated count Granulocy 37.0 - % Normal No Sep 11 natalia/100 80.0 informati 2016 4:26 leukocyte on in PM s in source Blood by data Automated count Hematocri 37.0 - % Normal No Sep 11 t [Volume 47.0 informati 2016 4:26 on in PM Fraction] source of Blood data Hemoglobi 12.2 - g/dL No No Sep 11 n 16.2 informati informati 2016 4:26 [Mass/vol on in on in PM ume] in source source Blood data data Lymphocyt 0.7 - 4.5 K/mm3 Normal No Sep 11 es informati 2016 4:26 [#/volume on in PM ] in source Unspecifi data ed specimen by Automated count Lymphocyt 10 - 50.0 % Normal No Sep 11 es informati 2016 4:26 [#/volume on in PM ] in source Unspecifi data ed specimen by Automated count Erythrocy 27 - 31.2 pg High No Sep 11 te mean informati 2016 4:26 corpuscul on in PM ar source hemoglobi data n [Entitic mass] Erythrocy 31.8 - g/dl Normal No Sep 11 te mean 35.4 informati 2016 4:26 corpuscul on in PM ar source hemoglobi data n concentra tion [Mass/vol ume] by Automated count Erythrocy 82.2 - fl Normal No Sep 11 te mean 97.8 informati 2016 4:26 corpuscul on in PM ar volume source [Entitic data volume] by Automated count Monocytes 0.1 - 1.0 K/mm3 Normal No Sep 11 informati 2016 4:26 [#/volume on in PM ] in source Blood by data Automated count Monocytes 1.7 - 9.3 % Normal No Sep 11 /100 informati 2016 4:26 leukocyte on in PM s in source Blood by data Automated count Platelet 7.4 - fl Normal No Sep 11 mean 10.4 informati 2016 4:26 volume on in PM [Entitic source volume] data in Blood by Automated count Platelets 142 - 424 K/mm3 High No Sep 11 informati 2016 4:26 [#/volume on in PM ] in source Blood data Erythrocy 4.2 - 5.4 M/mm3 Normal No Sep 11 natalia informati 2016 4:26 [#/volume on in PM ] in source Amniotic data fluid Erythrocy 11.5 - % Normal No Sep 11 te 17.5 informati 2016 4:26 distribut on in PM ion width source [Entitic data volume] by Automated count Leukocyte 4.8 - K/MM3 Normal No Sep 11 s 10.8 informati 2016 4:26 [#/volume on in PM ] in source Blood data Hemoglobin A1c in Blood Observa Value Referen Units Interpr Notes Date tion ce etation Range Hemoglo 5.1 0.0 - % Normal < 6% Sep 11 bin A1c 7.0 [facility] PM Blood LEVEL< 7% CONTROL LED DIABETI C LEVEL> 8% POORLY CONTROL LED DIABETI C LEVEL
--- OUTSIDE RECORDS SUMMARY | 2017-06-16 23:29 | External Medical Summary Rpt | CCD ---
Author Author , NIXON COXDOUG Address Unknown Phone [email or web address] Care Team Providers Care Flat Knitter Helper Name Role Phone [facility] Unavailable Unavailable MEDICAL GROUP, [facility] Unavailable Unavailable CENTER, [facility] E[facility] Unavailable Unavailable [facility], Unavailable Unavailable [facility] Un[facility] Unavailable Unavailable INC, [facility] Unavailable [facility]available HOSPITAL, [facility], Unavailable Unavailable [facility] Unavailable Unavailable [facility], [facility] Unavailable Unavailable [facility]INGS, [facility] Unavailable Unavailable HUNG JEFF MD Unavailable Unavailable CONSULTING SRV, HUNG JEFF MD CONSULTING SRV [facility], Unavailable Unavailable PLLC, [facility], [facility] Unavailable Unavailable CENTER, [facility] Unavailable Unavailable PHYSICIAN DEVAN, [facility] Purpose Continuity of Care Document - 05-14-2014 through 2016 Problems Code Diagnosis DOS Provider Status B1910 UNS VIRAL 05-02-2017 [facility] HEPATITIS B COMMUNTIY WITHOUT HOSPITA HEPATIC COMA K5900 CONSTIPATIO 04-12-2017 [place] [facility]PEC[facility]IED [facility]ING [facility] R1012 LEFT UPPER 04-12-2017 [facility] PLLC R1032 LEFT LOWER 04-12-2017 [place] [place] [facility] E663 OVERWEIGHT 03-28-2017 [facility]ANS GROUP M549 DORSALGIA 03-28-2017 [facility] UNSPECIFIED PHYSICIANS GROUP R531 WEAKNESS 03-28-2017 [facility] GROUP R768 OTH SPEC 03-28-2017 [facility] IMMUNOLOGIC INC AL FIND IN SERUM Q84717 OTHER LONG 03-14-[address] [facility] CURRENT CENTER DRUG THERAPY P14223 CUTANEOUS 03-13-2017 [facility] ABSCESS OF PHYSICIANS, RIGHT LOWER PLLC LIMB [id number] PHYSICIAN NON INVASIVE CARDIOLOGIST 02-15-2017 [facility]ICIANS CURRENT USE [facility] ANALGESIC H5201 HYPERMETROP 12-02-2016 [facility] IA RIGHT EYE 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 Y08364 UNSPECIFIED 12-02-2016 [facility] ASTIGMATISM BILATERAL J029 ACUTE 11-05-2016 [facility] PHARYNGITIS [facility] UNSPECIFIED R05 COUGH 07-12-2016 [facility] R6889 OTHER 07-12-2016 [facility] SYMPTOMS MEDICAL AND SIGNS GROUP J020 STREPTOCOCC 04-28-2016 [facility] PHARYNGITIS MEDICAL GROUP J0141 ACUTE 03-19-2016 [facility] PANSINUSITI MEDICAL S GROUP J0190 ACUTE 12-20-2015 [facility] SINUSITIS [facility] UNSPECIFIED CENTER J069 ACUTE UPPER 12-20-2015 [facility] INFECTION UNSPECIFIED E876 HYPOKALEMIA 08-10-2015 [facility] N PHYSICIAN SERVI R000 TACHYCARDIA 08-10-2015 [facility] N PHYSICIAN UNSPECIFIED SERVI J00 ACUTE 08-02-2015 [facility] NASOPHARYNG [facility] ITIS COMMON MEDICAL COLD GROUP J0140 ACUTE 08-02-2015 [facility] PANSINUSITI HEALTH S MEDICAL UNSPECIFIED GROUP 5990 URINARY 04-14-2015 [facility] SITE NOT SPECIFIED 57136 UNS ADVRS 12-13-2014 HUNG JEFF EFF UNS RX MEDICINAL&B CONSULTING IOLOGICAL SRV SBSTNC 4871 INFLUENZA 08-02-2014 [facility] WITH OTHER HEALTH RESPIRATORY MEDICAL GROUP MANIFESTATI ONS 2724 OTHER AND 07-13-2014 [facility] UNSPECIFIED HYPERLIPIDE NATHAN V700 ROUTINE 05-14-2014 [facility] HOSP [email or web address] FACL Medications Na ND Rx Da Fi Fi [...] AR MA 33 CY 50 PO WD IB 55 09 10 12 3 00 ME Ac UP 11 -0 -0 .0 00 DI ti RO 10 5- 6- 00 06 CI ve FE 68 20 20 74 NE N 30 17 [address] 0 OP MG PH TA AR BL MA ET CY CL 00 09 10 21 7 00 ME Ac IN 59 -0 -0 .0 00 DI ti DA 12 5- 6- 00 06 CI ve MY 93 20 20 74 NE CI 20 17 [address] HC OP L 30 PH 0 AR MG MA CY CA PS UL E HY 00 08 09 90 [address] 18 -2 -2 .0 00 DI ti OX 50 9- 9- 00 06 CI ve YZ 61 20 20 74 NE IN 50 17 [address] PA OP M 50 PH AR MG MA CY CA P WALDRON 53 08 09 20 10 00 ME Ac LF 74 -2 -2 .0 00 DI ti AM 60 8- 9- 00 06 CI ve ET 27 20 20 74 NE HO 20 17 17 [address] ZO OP LE -T PH MP AR MA DS CY TA BL ET QU 16 08 09 30 [...] 08 09 60 30 00 ME Ac WI 09 -2 -2 .0 00 DI ti OP 70 5- 2- 00 06 CI ve IO 87 20 20 74 NE N 70 17 [address] L OP SR PH 10 AR 0 MA MG CY TA BL ET ME 31 08 09 90 30 00 ME Ac TH 72 -2 -2 .0 00 DI ti OC 20 5- 2- 00 06 CI ve AR 53 20 20 74 NE BA 40 17 [address] L OP 75 0 PH MG AR MA TA CY BL ET MO 33 08 09 30 30 00 ME Ac NT 34 -2 -2 .0 00 DI ti EL 20 5- 2- 00 06 CI ve UK 10 20 20 74 NE 21 17 [address] SO OP D 10 PH AR MG MA CY TA BL ET AK 60 08 09 30 30 00 ME Ac RT 50 -2 -2 .0 00 DI ti AZ 50 5- 2- 00 06 CI ve AP 24 20 20 74 NE IN 70 17 [address] 15 OP MG PH AR TA MA BL CY ET HY 00 08 09 90 30 [...] 07 [address] Ac WI 18 -2 -2 .0 00 AZ ti [...] LT Y TA CA BL RE ET AK 00 07 [address] Ac RT 09 -2 -2 .0 00 AZ ti AZ 37 7- 5- 00 00 A ve AP [address] IN 65 17 17 00 UG E 6 49 15 SP EC MG IA LT TA Y BL CA ET RE WI 00 07 [address] [...] ve DI [address] NE 08 17 17 98 UG 7 64 10 SP EC MG IA LT TA Y BL CA ET RE BU 69 05 06 60 30 00 ME Ac WI 09 -2 -2 .0 00 DI ti OP 70 3- 3- 00 06 CI ve IO 87 20 20 73 NE N 80 17 [address] L OP SR PH 15 AR 0 MA MG CY TA BL ET BU 60 05 06 60 30 00 ME Ac WI 50 -0 -0 .0 00 DI ti OP 50 1- 2- 00 06 CI ve IO 15 20 20 73 NE N 80 17 [address] L OP 75 PH MG AR MA TA CY BL ET BU 60 03 03 60 30 00 RI Ac WI 50 -0 -3 .0 00 TE ti [...] MG #3 91 TA 4 BL ET WI 00 12 01 12 6 00 RI [...] 03 -2 -1 .0 00 TE ti WI 70 3- 3- 00 00 ve OL [...] TE 91 4 50 MG TA B Encounters Encounter Start End Date Code Location Performer Type Date [facility] [place] [address] [facility] - OTHER [address] [place] [address] [facility] - 7 7 [facility] - OTHER [address] [place] [address] [facility] - 5 5 [facility]
--- OUTSIDE RECORDS SUMMARY | 2017-06-16 23:29 | External Medical Summary Rpt | CCD ---
Demographics Preferred Language Beninese Marital Status Unknown Restorationist Affiliation Unknown Race Unknown Ethnic Group Unknown Author Author , NIXON ALICEA Address Unknown Phone [email or web address] [email or web address] Name Date Rout CVX Reac Dose Comm Prov Is Faci e tion ent ider Refu lity Give sed n Td 02- 9 999 Hist H109 No H109 (anant 5-19 oric lt), 99 al Info adso rmat rbed ion - Sour ce Unsp ecif ied
--- OUTSIDE RECORDS SUMMARY | 2017-06-16 23:29 | External Medical Summary Rpt ---
[...] [facility] e data data [Identi [place] fier] [id number] in [place], [place] by Probe & [id number] target 61Lab Directo amplifi r: cation Saúl Mcguire MD, Phone: [phone] Please Comment . No No This Mar [...] researc h.Perfo rmed at: - [facility] [place] [id number] [facility], [place], [place] [address] 61Lab Directo r: Saúl Mcguire MD, Phone: [phone] Comprehensive metabolic 2000 panel in Serum or [...] 11 bin A1c 7.0 NON-JAYLEN 2017 [facility]26 PM Blood LEVEL< 7% CONTROL LED DIABETI C LEVEL> 8% POORLY CONTROL LED DIABETI C LEVEL
--- OUTSIDE RECORDS SUMMARY | 2017-06-16 23:29 | External Medical Summary Rpt | CCD ---
Demographics Preferred Language Kazakh Marital Status Unknown Episcopalian Affiliation Unknown Race Unknown Ethnic Group Unknown Author Author , NIXON ALICEA Address Unknown Phone [email or web address] Immunization Name Date Rout CVX Reac Dose Comm Prov Is Faci e tion ent ider Refu lity Give sed n Td 02- 9 999 Hist H109 No H109 (anant 5-19 oric lt), 99 al Info adso rmat rbed ion - Sour ce Unsp ecif ied
--- OUTSIDE RECORDS SUMMARY | 2017-06-16 23:29 | External Medical Summary Rpt | CCD ---
Author Author , NIXON COXDOUG Address Unknown Phone [email or web address] Care Team Providers Care Leather Lacer Name Role Phone [facility] Unavailable Unavailable MEDICAL GROUP, [facility] Unavailable Unavailable CENTER, [facility] Unavailable Unavailable [facility], Unavailable Unavailable [facility] Unavailable Un[facility], [facility] Unavailable Unavailable INC, [facility] Unavailable Unavailable HOSPITAL, [facility], [facility]available Unavailable [facility] Unavailable Unavailable [facility], [facility] Unavailable Unavailable HOLDINGS, [facility] Unavailable Unavailable HUNG JEFF MD Unavailable Unavailable CONSULTING SRV, HUNG JEFF MD CONSULTING SRV [facility], Unavailable Unavailable PLLC, [facility], [facility] Unavailable Unavailable CENTER, [facility] Unavailable Unavailable PHYSICIAN DEVAN, [facility] Purpose Continuity of Care Document - 05-14-2014 through 2016 Problems Code Diagnosis DOS Provider Status B1910 UNS VIRAL 05-02-2017 [place] HEPATITIS B COMMUNTIY WITHOUT HOSPITA HEPATIC COMA K5900 CONSTIPATIO 04-12-2017 [place] [facility] UNSPECIFIED IMAGING ASS R1012 LEFT UPPER 04-12-2017 [facility] PAIN PLLC R1032 LEFT LOWER 04-12-2017 [facility] [facility] E663 OVERWEIGHT 03-28-2017 [facility] PHYSICIANS GROUP M549 DORSALGIA 03-28-2017 [facility] UNSPECIFIED PHYSICIANS GROUP R531 WEAKNESS 03-28-2017 [facility] PHYSICIANS GROUP R768 OTH SPEC 03-28-2017 [facility] IMMUNOLOGIC INC AL FIND IN SERUM M07349 OTHER LONG 03-14-[address] [facility] MEDICAL CURRENT CENTER DRUG THERAPY V34923 CUTANEOUS 03-13-2017 [facility] ABSCESS OF PHYSICIANS, RIGHT LOWER PLLC LIMB 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 [facility] 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 H5201 HYPERMETROP 12-02-2016 [facility] IA RIGHT EYE 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 [id number] UNSPECIFIED 12-02-2016 [facility] ASTIGMATISM BILATERAL J029 ACUTE 11-05-2016 [facility] PHARYNGITIS [facility] UNSPECIFIED R05 COUGH 07-12-2016 [facility] MEDICAL GROUP R6889 OTHER 07-12-2016 [facility] SYMPTOMS MEDICAL AND SIGNS GROUP J020 STREPTOCOCC 04-28-2016 [facility] PHARYNGITIS MEDICAL GROUP J0141 ACUTE 03-19-2016 [facility] HEALTH PANSINUSITI MEDICAL S GROUP J0190 ACUTE 12-20-2015 [facility] SINUSITIS [facility] UNSPECIFIED CENTER J069 ACUTE UPPER 12-20-2015 [facility] INFECTION UNSPECIFIED E876 HYPOKALEMIA 08-10-2015 [facility] N PHYSICIAN SERVI R000 TACHYCARDIA 08-10-2015 [facility] N PHYSICIAN UNSPECIFIED SERVI J00 ACUTE 08-02-2015 [facility]NG [facility] ITIS COMMON MEDICAL COLD GROUP J0140 ACUTE 08-02-2015 [facility] PANSINUSITI HEALTH S MEDICAL UNSPECIFIED GROUP 5990 URINARY 04-14-2015 [facility] SITE NOT SPECIFIED 53265 UNS ADVRS 12-13-2014 HUNG JEFF EFF UNS RX MEDICINAL&B CONSULTING IOLOGICAL SRV SBSTNC 4871 INFLUENZA 08-02-2014 [facility] WITH OTHER HEALTH RESPIRATORY MEDICAL GROUP MANIFESTATI ONS 2724 OTHER AND 07-13-2014 [facility] UNSPECIFIED HYPERLIPIDE NATHAN V700 ROUTINE 05-14-2014 [facility] HOSP [email or web address] FACL Medications Na ND [...] 08 09 60 30 00 ME Ac OR 09 -2 -2 .0 00 DI ti [...] AR MG MA CY TA BL ET WY 60 08 09 30 30 00 ME [...] 07 [address] Ac OR 18 -2 -2 .0 00 AZ ti [...] LT Y TA CA BL RE ET WY 00 07 [address] Ac RT 09 -2 -2 .0 00 AZ ti AZ 37 7- 5- 00 00 A ve AP [address] IN 65 17 17 00 UG E 6 49 15 SP EC MG IA LT TA Y BL CA ET RE OR 00 07 [address] [...] 05 06 60 30 00 ME Ac OR 09 -2 -2 .0 00 DI ti OP 70 3- 3- 00 06 CI ve IO 87 20 20 73 NE N 80 17 [address] L OP SR PH 15 AR 0 MA MG CY TA BL ET BU 60 05 06 60 30 00 ME Ac OR 50 -0 -0 .0 00 DI ti OP 50 1- 2- 00 06 CI ve IO 15 20 20 73 NE N 80 17 [address] L OP 75 PH MG AR MA TA CY BL ET BU 60 03 03 60 30 00 RI Ac OR 50 -0 -3 .0 00 TE ti [...] MG #3 91 TA 4 BL ET OR 00 12 01 12 6 00 RI [...] 03 -2 -1 .0 00 TE ti OR 70 3- 3- 00 00 ve OL [...] End Date Code Location Performer Type Date [facility] [place] [address] [facility] OTHER [address] [place] [address] BRE - 7 7 [facility] - OTHER [address] [place] [address] BRE - 5 5 [facility]
[2017-06-16 23:31] LABS: HEMOGLOBIN 13.7 g/dL (12.2-16.2); LYMPH # 4.4 K/mm3 (0.7-4.5); LYMPH % 35.2 % (10-50.0)
[2017-06-16 23:36] LABS: URINE BILIRUBIN - DIPSTICK NEGATIVE (NEG); URINE BLOOD NEGATIVE (NEG)
--- NOTE | 2017-06-16 23:53 | Emergency Room Report ---
History of Present Illness Time Seen by MD Ortega Presenting Problem in Triage Pt arrived:Walked Presenting Problem:C/O RIGHT SIDED ABDOMINAL PAIN WITH VOMITING A FEW DAYS AGO STATES THAT PAIN ALSO RADIATES TO BACK. 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 N Clinical Suspician of Infection? N Mental Status: 1 - Regular (Normal Baseline) Sepsis Risk:Possible Sepsis Risk Have you (or family members/close friends) recently traveled outside the [place]? N If Yes, where/when: Have you had exposure to infectious disease within the past month? N TB? Other? Specify: Source patient, RN notes reviewed, family, old records Exam Limitations no limitations Comment rt upper abd pain with nausea over the last few days Cardiac Chest Pain Chest pain indicative of cardiac No Timing/Duration this evening Severity moderate ALLERGIES Coded Allergies: Penicillins (03/15/17) latex (04/12/17) Home Medications Reported Medications CLONIDINE HCL (Clonidine 0.1MG) 0.1 MG PO ONCE #90 PHENTERMINE HCL (Phentermine Hcl) 37.5 MG PO DAILY #30 History Medical History General CAD? No Angina: No [place]: No Hypertension? No Hyperlipidemia? No CHF? No DVT? No PE? No COPD? No Asthma? No Anemia? No GERD? No Gastric ulcers? No GI Bleed? No Hernia? No Thyroid Problems? No Hypothyroidism? No CVA? No Seizures? No Diabetes? No Renal Insuffiency? No End Stage Renal Disease? No UTI? No Stones? No BPH? No GB Disease: No Nephritic Syndrome? No Asplenia? No Hepatitis? No Sickle Cell Disease? No Arthritis? No Migraines? No Cataracts? No Glaucoma? No MRSA? No HIV? No TB? No Anxiety? Yes Depression? Yes Cancer? No More? 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 Respiratory denies cough, denies shortness of breath, denies wheezing Cardiovascular denies chest pain, denies palpitations, denies syncope Gastrointestinal see HPI, abdominal pain, vomiting Genitourinary denies: dysuria, frequency, hesitancy. Musculoskeletal denies back pain, denies joint pain, denies joint swelling, denies neck pain Skin denies rash Psychiatric/Neurological denies headache, denies seizure Physical Exam Vital Signs Vital Signs Date Time Temp Pulse Resp B/P Pulse O2 O2 Flow FiO2 Ox Delivery Rate 06/16 2314 98.7 103 20 138/95 99 - WBC >12,000 or <4,000 or 10% bands? 2 or more SIRS Criteria Met? B/P:138/95 MAP:109 Creatinine >2.0? UA output<0.5ml/kg/hr for 2 hrs? Platelet count >100,000? Lactate >2.0mmol/1? INR >1.2 or PTT > than 60 sec? Evidence of Organ Dysfunction? Provider documented clinical suspician of infection? N Sepsis Criteria Count: 2 Sepsis Risk: Possible Sepsis Risk General Appearance no apparent distress Eye Exam - bilateral eye PERRL, bilateral eye EOMI Ear, Nose, Throat normal ENT inspection Neck non-tender Respiratory Status No: respiratory distress. Lung Sounds bilateral: lungs clear. 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 No Results/Orders Laboratory Tests 06/16/17 2330: Urine Color YELLOW, Urine Appearance CLEAR, Urine pH 6.0, Ur Specific [place] 1.020, Urine Protein NEGATIVE, Urine Ketones NEGATIVE, Urine Blood NEGATIVE, Urine Nitrate POSITIVE H, Urine Bilirubin NEGATIVE, Urine Urobilinogen 0.2, Ur Leukocyte Esterase NEGATIVE, Urine RBC 3-5, Urine WBC 3-5, Ur Squamous Epith Cells 5-10, Amorphous Sediment 1+, Urine Bacteria 3+, Urine Mucus 1+, Urine Glucose NEGATIVE 06/16/172327: Sodium 138, Potassium 3.5, Chloride 101, Carbon Dioxide 29, BUN 9, Creatinine 1.2 H, Estimated Creat Clear 71, Estimated GFR (MDRD) 51 L, Glucose 96, Calcium 9.0, Total Bilirubin 0.3, AST 29, ALT 60, Alkaline Phosphatase 80, Total Protein 8.2, Albumin 4.0, Globulin 4.2 H, Albumin/Globulin Ratio 1.0 L, Amylase 64, Lipase 149, WBC 12.6 H, RBC 4.37, Hgb 13.7, Hct 39.3, MCV 89.9, RDW 12.9, Plt Count 353, MPV 6.9 L, Gran % 57.0, Gran # 7.2, Lymphocytes % 35.2, Monocytes % 4.1, Eosinophils % 2.9, Basophils % 0.7, Lymphocytes # 4.4, Monocytes # 0.5, Eosinophils # 0.4, Basophils # 0.1, PUBS MCHC 34.9, MCH 31.4 H Current Medication Orders Sig/Michelle Start time Last Medication Dose Route Stop Time Status Admin Sodium Chloride 10 ML PRN PRN 06/16 2330 AC IV 06/17 232 Sodium Chloride 1,000 ML .Q1H1M 06/16 2330 DC 06/16 IV 06/17 0030 2331 Sodium Chloride 10 ML PRN PRN 06/16 2330 AC IV 06/17 2322 Sodium Chloride 1,000 ML .STK-MED ONE 06/16 2326 DC IV Orders Procedure Date/time Status DIET-NOTHING BY MOUTH 06/[address] ABD & PELVIS W/O CONTRAST 06/16 2341 Active CULTURE, URINE 06/[address] ABD/PELVIS REQ 06/16 2323 Complete IV SALINE LOCK 06/16 2323 Active URINALYSIS/COMPLETE 06/16 2323 Complete URINE 06/16 2323 Complete LIPASE 06/16 2323 Complete CBC WITH AUTO DIFF 06/16 2323 Complete CHEM 12 PROFILE 06/16 2323 Complete AMYLASE 06/16 2323 Complete XRAY/CT/US XRAY/CT/US CT abdomen, pelvis CT interpretation by discussed w/radiologist Time results known: 0050 CT Results normal/NAD Departure Departure Time of Disposition 0050 Disposition DC Home or Self Care(routine) Clinical Impression Primary Impression: Abdominal pain Qualifiers: Abdominal location: right upper quadrant Qualified Code: R10.11 - Right upper quadrant pain Condition STABLE Referrals Jairo ADAMS,[place] [facility] (Family) Patient Instructions DI for Abdominal Pain-Adult Additional Instructions please call pcp to arrange more eval Discharge Counseling Counseled pt/family regarding diagnosis, test results, medications/RX, follow up needs ED Critical Care Critical Care No at 0058
[2017-06-17 01:34] VITALS: BP 132/78
--- NOTE | 2017-06-17 08:07 | RADIOLOGY REPORT PS360 ---
CT ABD PELVIS W/O CONTRAST CLINICAL INDICATION: Right-sided abdominal pain, right flank pain RT SIDED ABD PAIN ORDERING PHYSICIAN: Josh Gill MD PATIENT AGE: 36 years COMPARISON: 04/12/2017 TECHNIQUE: Axial images obtained with sagittal and coronal reformats. PROCEDURE: Oral Contrast: None IV Contrast: None . FINDINGS: Lower thorax: No acute finding ABDOMEN: Liver: No masses or biliary dilatation. Gallbladder: Nondistended. No radio opaque stones. Pancreas: No masses or peripancreatic fluid collections. Spleen: Unremarkable. Adrenals: Unremarkable Kidneys/ureters: No masses. No renal calculi. No hydronephrosis. No perinephric fluid collections. No ureteral dilatation or obvious ureteral calculi. Stomach bowel: Nondistended. No obvious mass or thickening. Appendix: No evidence of appendicitis. PELVIS: Reproductive: Unremarkable Bladder: Nondistended. No obvious stones or masses. ABDOMEN & PELVIS: Peritoneum: No abnormal fluid collections. No obvious inflammatory changes. No free air. Lymph nodes: No enlarged lymph nodes apparent. Vasculature: No evidence of abdominal aortic aneurysm. No retroperitoneal hemorrhage evident. Bones: No acute fracture IMPRESSION: Negative, no acute intra-abdominal or pelvic pathology apparent
== END 2017-06-17 01:34 | disposition home or self-care (01) ==
LOC: ER 23:10
PROVIDERS: Emergency Medicine
DX: R10.11 Right upper quadrant pain (principal); Z88.0 Allergy status to penicillin; F17.210 Nicotine dependence, cigarettes, uncomplicated
CPT/HCPCS: J2405